=== PATIENT | female | born 1935 | race Caucasian/White ===

== ENCOUNTER 2021-07-01 15:56 | Emergency (ER) | payer MEDICARE ==
[2021-07-01] MEDS ORDERED: Fentanyl 100 MCG/2 ML VIAL ONE (15:58)
[2021-07-01] MEDS ORDERED: Midazolam HCl 5 mg/ml Vial ONE ×3 (16:12→17:24)
[2021-07-01 16:18] LABS: #Lymphocytes 0.7 thou/uL (1.20-3.40); #Monocytes 1.2 thou/uL (0.11-0.59); #Neutrophils 15.5 thou/uL (1.40-6.50); %Basophils 0.1 % (0.0-1.0); %Eosinophils 0.2 % (0.0-10.0); %Lymphocytes 4.1 % (21.0-51.0); %Monocytes 6.7 % (0.0-10.0); %Neutrophils 88.9 % (42.0-75.0); Hemoglobin 11.5 g/dL (12.0-16.0); Mean Corpuscular HGB CONC 32.8 g/dL (32.0-36.0); Mean Corpuscular Hemoglobin 33.2 pg (27.0-31.0); Mean Platelet Volume 7.6 fL (7.4-10.4); Platelet Count 346 thou/uL (130-400); RBC Distribution Width 11.9 % (11.5-14.5); Red Blood Cell (RBC) Count 3.48 mill/uL (4.20-5.40); White Blood Cell (WBC) Count 17.4 thou/uL (4.8-10.8)
[2021-07-01 16:29] LABS: Prothrombin Time 13.6 sec (12.0-14.7)
[2021-07-01 16:30] LABS: PTT 27.1 sec (22.9-36.1)
[2021-07-01 16:36] LABS: Analyzer IN Cardio ER; Base Excess (BEa) -3.7 mEq/L (-2.0 to +3.0); CO2 Tension 31.8 mmHg (35.0-45.0); Hemoglobin (Hb) 11.4 g/dL (12.0-16.0); O2 Tension (PaO2), arterial 79.3 mmHg (> 60.0); Potassium - ABG Lab 6.06 mmol/L (3.70-5.30); pH, Arterial 7.42 (7.35-7.45)
[2021-07-01] MEDS ORDERED: EPINEPHrine 1 MG/10 ML Abboject SYRINGE ONE (16:36)
[2021-07-01 16:37] LABS: Bilirubin 1+ (Negative); Blood, Urine Negative (Negative); Clarity Turbid (Clear); Glucose, Urine (Dipstick) Normal (Negative); Ketone, Urine Negative (Negative); Leukocyte Negative Leu/uL (Negative); Nitrite Negative (Negative); Protein, Urine (Dipstick) 20 mg/dL (Neg-Trace); Specific Gravity, Urine 1.019 (1.002-1.036); Urobilinogen Normal mg/dL (Less than 2); pH, Urine 5.5 (5.0-9.0)
[2021-07-01 16:37] LABS: Puncture Site RRA
[2021-07-01 16:46] LABS: Amphetamine Not Detected (NotDetected); Barbiturates Screen Not Detected (NotDetected); Benzodiazepine Screen Detected (NotDetected); Cocaine Metabolite Screen Not Detected (NotDetected); Methadone Not Detected (NotDetected); Methamphetamine Not Detected (NotDetected); Opiate Screen Detected (NotDetected); Oxycodone Screen Not Detected (NotDetected); Phencyclidine (PCP) Not Detected (NotDetected); THC/Cannabinoid Screen Not Detected (NotDetected); Tricyclic Screen Not Detected (NotDetected)
[2021-07-01 16:46] LABS: ALT (SGPT) 15 U/L (8-55); AST (SGOT) 32 U/L (5-34); Albumin 3.4 g/dL (3.4-4.8); Alkaline Phosphatase 127 U/L (40-110); Anion Gap 19 mmol/L (10-20); BUN (Urea Nitrogen) 32 mg/dL (9.8-20.1); Bilirubin, Total 0.6 mg/dL (0.2-1.2); Calc. Creatinine Clearance 0 mL/min (70-130); Calcium 8.8 mg/dL (7.8-10.44); Carbon Dioxide 17 mmol/L (23-31); Chloride 90 mmol/L (98-107); Glucose 155 mg/dL (83-110); Lipase 7 U/L (8-78); Potassium 6.4 mmol/L (3.5-5.1); Protein, Total 5.4 g/dL (5.8-8.1); Sodium 120 mmol/L (136-145)
[2021-07-01 16:48] LABS: Acetaminophen Less than 10.0 mcg/mL (10.0-30.0); Alcohol Less than 10 mg/dL (Less than 10); Magnesium 2.1 mg/dL (1.6-2.6); Salicylate Less than 8.0 mg/dL (15.0-30.0)
[2021-07-01] MEDS ORDERED: Morphine 10 MG/ML VIAL ONE ×3 (17:05→17:37)
== END 2021-07-01 17:52 | disposition expired ==
LOC: ERS 15:56
DX: A41.9 Sepsis, unspecified organism (principal); N39.0 Urinary tract infection, site not specified; I10 Essential (primary) hypertension; E78.5 Hyperlipidemia, unspecified
CPT/HCPCS: 36600; 51702; 71045; 80053; 80306; 80307; 81003; 82550; 82805; 83605; 83690; 83735; 84443; 84484; 85025; 85610; 86140; 87040; 87086; 93005; 94002; 96365; 96375; 96376; 99292; J0171; J2250; J2270; J3010